=== PATIENT | female | born 1940 | race Caucasian/White ===

== ENCOUNTER 2016-12-08 12:35 | Inpatient (IN) | payer OTHER ==
[~2016-12-08] VITALS: Ht 165.1 cm; Wt 114.0 kg
[~2016-12-08 12:35] MED LIST: ACETAMINOPHEN325 M3 PO; ATENOLOL25 MG PO; BUSPIRONE HCL10 MG PO; CEFAZOLIN SODIUM1 GM IV; COUMADIN2.5 MG PO; COUMADIN3 MG PO; DUONEB 2.5-0.5 M3 ML AEROSOL; HYDROCHLOROTHIA25 MG PO; LEXAPRO20 MG PO; LIPITOR40 MG PO; LISINOPRIL20 MG PO; LO-DOSE ASPIRIN81 M2 PO; NITROSTAT0.4 MG SL; OXYBUTYNIN CHLOR5 M1 PO; PREVACID30 MG PO; SENNA PLUS TAB1 EACH PO; THIAMINE HCL100 MG PO; TRAZODONE HCL50 MG PO; TRILEPTAL600 MG PO; VIGAMOX 0.60 DROP/3 BOTH EYES
[2016-12-08 13:16] LABS: HEMATOCRIT 36.4 % (36.0-46.0); MCH 26.9 PG (29.0-34.0); MCHC 31.9 G/DL (30.0-36.0); MCV 84.5 FL (83-99); MEAN PLAT.VOLUME 10.4 uM^3 (9.5-12.4); PLATELET COUNT 254 K/uL (156-360); RBC DIS.WIDTH-CV 16.5 % (11.8-14.6); RBC DIS.WIDTH-SD 50.5 % (39-53); RED BLOOD COUNT 4.31 M/uL (3.80-5.20)
[2016-12-08 13:17] LABS: WHITE BLOOD COUNT 6.4 K/uL (4.1-10.2)
[2016-12-08 13:25] LABS: CHLORIDE 98 mEq/L (99-109); POTASSIUM 5.4 mEq/L (3.7-5.4); SODIUM 134 mEq/L (136-147)
[2016-12-08 13:27] LABS: GLUCOSE 124 mg/dL (70-99)
[2016-12-08 13:28] LABS: ANION GAP 14 MEQ/L (2-14)
[2016-12-08 13:31] LABS: GFR ESTIMATE (CALCULATED) 36 mL/min/
[2016-12-08 13:32] LABS: UREA NITROGEN (BUN) 26 mg/dL (9-23)
[2016-12-08 14:04] LABS: ADD MIUA? NO; BILIRUBIN NEGATIVE; BLOOD NEGATIVE; COLOR YELLOW ((YELLOW)); GLUCOSE (STRIP) NEGATIVE; KETONES NEGATIVE; LEUKOCYTES NEGATIVE; NITRITE NEGATIVE; PH, URINE 5.5 (5-8); PROTEIN (STRIP) NEGATIVE; SPECIFIC GRAVITY 1.018 (1.000-1.030); UCUL ADDED? NO; UROBILINOGEN 0.2 MG/DL (0.2-1.0)
[2016-12-08 14:05] LABS: TROP-I INTERPRETATION NEGATIVE; TROPONIN-I < 0.01 ng/mL (0.0-0.30)
[2016-12-08] MEDS ORDERED: LEXAPRO10 MG PO (15:36)
[2016-12-08] MEDS ORDERED: AUGMENTIN875 MG PO (15:39)
[2016-12-08] MEDS ORDERED: TYLENOL REGULA325 MG PO (15:40)
[2016-12-08] MEDS ORDERED: DUONEB 2.5-0.5 M3 ML AEROSOL (15:41)
[2016-12-08 16:55] LABS: INTER. NORMALIZED RATIO 1.7; PROTHROMBIN TIME 17.9 (9.2-11.2)
[2016-12-08 21:00] VITALS: BP 90/62
[2016-12-08 21:41] LABS: INFLUENZA A VIRAL ANTIGEN NEGATIVE; INFLUENZA B VIRAL ANTIGEN NEGATIVE
[2016-12-09] VITALS (7 sets, daily range): BP systolic 99–165; BP diastolic 60–87
[2016-12-09 06:52] LABS: EOSINOPHIL (%) 1.2 % (0-5); EOSINOPHIL COUNT 0.1 K/uL (0-0.3); HEMATOCRIT 34.5 % (36.0-46.0); IMMATURE GRANULOCYTE (%) 0.8 % (0.0-0.7); IMMATURE GRANULOCYTE COUNT 0.7 K/uL; LYMPHOCYTE COUNT 0.7 K/uL (1.0-2.8); MCH 26.8 PG (29.0-34.0); MCHC 31.3 G/DL (30.0-36.0); MCV 85.6 FL (83-99); MONOCYTE (%) 4.8 % (3-12); MONOCYTE COUNT 0.4 K/uL (0-0.8); NEUTROPHIL (%) 84.2 % (45-76); NEUTROPHIL COUNT 7.2 K/uL (1.8-6.4); RBC DIS.WIDTH-CV 16.5 % (11.8-14.6); RBC DIS.WIDTH-SD 51.2 % (39-53); RED BLOOD COUNT 4.03 M/uL (3.80-5.20)
[2016-12-09 06:55] LABS: WHITE BLOOD COUNT 8.6 K/uL (4.1-10.2)
[2016-12-09 07:12] LABS: METH RESISTANT S AUREUS PCR NEGATIVE (NEGATIVE)
[2016-12-09 07:15] LABS: PROBE CHECK PASS; SPECIMEN PROCESSING CONTROL PASS
[2016-12-09 07:29] LABS: INTERNAL CONTROL VALID? YES
[2016-12-09 07:45] LABS: ANION GAP 10 MEQ/L (2-14); CHLORIDE 102 MEQ/L (99-109); GFR ESTIMATE (CALCULATED) 51 mL/min/; GLUCOSE 117 mg/dL (70-99); POTASSIUM 5.9 MEQ/L (3.7-5.4); SAMPLE HEMOLYSIS CHECK 1; SAMPLE ICTERIC CHECK 0; SAMPLE LIPEMIA CHECK 0; SODIUM 135 MEQ/L (136-147); UREA NITROGEN (BUN) 21 mg/dL (9-23)
[2016-12-09 07:56] LABS: INTER. NORMALIZED RATIO 1.9; PROTHROMBIN TIME 19.3 (9.2-11.2)
[2016-12-09 08:52] LABS: ABS NEUTROPHIL COUNT 6.95; ANISOCYTOSIS 1+; MICROCYTOSIS 1+; PLAT.SUFFICIENCY ADEQUATE; PLATELET CLUMPS PRESENT; USER ID STC
[2016-12-10 04:05] VITALS: BP 136/92
[2016-12-10 06:53] LABS: INTER. NORMALIZED RATIO 2.4
[2016-12-10 08:06] VITALS: BP 142/88
[2016-12-10 08:53] LABS: HEMATOCRIT 34.3 % (36.0-46.0); MCH 27.2 PG (29.0-34.0); MCHC 30.3 G/DL (30.0-36.0); MCV 89.6 FL (83-99); MEAN PLAT.VOLUME 10.2 uM^3 (9.5-12.4); PLATELET COUNT 210 K/uL (156-360); RBC DIS.WIDTH-CV 17.2 % (11.8-14.6); RED BLOOD COUNT 3.83 M/uL (3.80-5.20); WHITE BLOOD COUNT 8.5 K/uL (4.1-10.2)
[2016-12-10 09:30] LABS: ANION GAP 11 MEQ/L (2-14); CHLORIDE 107 MEQ/L (99-109); GFR ESTIMATE (CALCULATED) 51 mL/min/; GLUCOSE 142 mg/dL (70-99); POTASSIUM 5.3 MEQ/L (3.7-5.4); SAMPLE HEMOLYSIS CHECK 0; SAMPLE ICTERIC CHECK 0; SAMPLE LIPEMIA CHECK 0; SODIUM 137 MEQ/L (136-147); UREA NITROGEN (BUN) 26 mg/dL (9-23)
[2016-12-10 11:56] VITALS: BP 141/74
[2016-12-10 16:00] VITALS: BP 155/78
[2016-12-10 18:58] VITALS: BP 154/85
[2016-12-10 22:49] VITALS: BP 142/80
[2016-12-11 03:11] VITALS: BP 150/70
[2016-12-11 07:26] LABS: INTER. NORMALIZED RATIO 2.8
[2016-12-11 07:46] VITALS: BP 152/97
[2016-12-11 08:42] LABS: ANION GAP 8 MEQ/L (2-14); CHLORIDE 104 MEQ/L (99-109); GFR ESTIMATE (CALCULATED) 57 mL/min/; GLUCOSE 107 mg/dL (70-99); POTASSIUM 4.5 MEQ/L (3.7-5.4); SAMPLE HEMOLYSIS CHECK 0; SAMPLE ICTERIC CHECK 0; SAMPLE LIPEMIA CHECK 0; SODIUM 138 MEQ/L (136-147); UREA NITROGEN (BUN) 28 mg/dL (9-23)
[2016-12-11 11:59] VITALS: BP 158/88
[2016-12-11 15:49] VITALS: BP 152/90
[2016-12-11 19:07] VITALS: BP 145/85
[2016-12-11 22:31] VITALS: BP 126/71
[2016-12-12 06:39] LABS: INTER. NORMALIZED RATIO 3.9
[2016-12-12 09:24] VITALS: BP 137/91
[2016-12-12 12:10] LABS: HEMATOCRIT 32.2 % (36.0-46.0); MCHC 30.7 G/DL (30.0-36.0); MCV 87.7 FL (83-99); MEAN PLAT.VOLUME 9.8 uM^3 (9.5-12.4); PLATELET COUNT 193 K/uL (156-360); RBC DIS.WIDTH-CV 16.7 % (11.8-14.6); RBC DIS.WIDTH-SD 52.9 % (39-53); RED BLOOD COUNT 3.67 M/uL (3.80-5.20)
[2016-12-12 12:11] LABS: WHITE BLOOD COUNT 11.3 K/uL (4.1-10.2)
[2016-12-12 12:45] VITALS: BP 136/55
[2016-12-12 12:58] LABS: ANION GAP 8 MEQ/L (2-14); CHLORIDE 105 MEQ/L (99-109); GFR ESTIMATE (CALCULATED) > 59 mL/min/; GLUCOSE 108 mg/dL (70-99); POTASSIUM 4.6 MEQ/L (3.7-5.4); SAMPLE HEMOLYSIS CHECK 0; SAMPLE ICTERIC CHECK 0; SAMPLE LIPEMIA CHECK 0; SODIUM 141 MEQ/L (136-147); UREA NITROGEN (BUN) 23 mg/dL (9-23)
[2016-12-12 15:43] VITALS: BP 121/62
[2016-12-12 19:37] VITALS: BP 129/58
[2016-12-12 23:09] VITALS: BP 112/77
[2016-12-13 03:46] VITALS: BP 138/89
[2016-12-13 07:34] LABS: INTER. NORMALIZED RATIO 3.5; PROTHROMBIN TIME 36.6 (9.2-11.2)
[2016-12-13 08:22] VITALS: BP 139/84
[2016-12-13] MEDS ORDERED: CARVEDILOL6.25 MG PO (11:38)
[2016-12-13] MEDS ORDERED: SEROQUEL12.5 MG PO (11:38)
[2016-12-13] MEDS ORDERED: COUMADIN3 MG PO (11:38)
[2016-12-13] MEDS ORDERED: HYDROCHLOROTHIA25 MG PO (11:38)
[2016-12-13] MEDS ORDERED: LEVAQUIN750 MG PO (11:49)
[2016-12-13 11:59] VITALS: BP 124/77
[2016-12-13] MEDS ORDERED: ACETYLCYSTEINE IH (15:12)
[2016-12-13] MEDS ORDERED: MEDROL DOSEPAK4 MG PO (15:12)
[2016-12-13] MEDS ORDERED: DUONEB 2.5-0.5 M3 ML PEP (15:12)
[2016-12-13 16:34] VITALS: BP 126/93
== END 2016-12-13 18:07 | DRG 190 ==
LOC: EME 12:35 → EDOF 15:50 → 4EAST 15:50 → EDOF 16:51 → 4EAST 21:34
PROVIDERS: Emergency Medicine; Internal Medicine
DX: J44.0 Chronic obstructive pulmonary disease with (acute) lower respiratory infection (principal); J96.21 Acute and chronic respiratory failure with hypoxia; N17.9 Acute kidney failure, unspecified; J18.9 Pneumonia, unspecified organism; I95.9 Hypotension, unspecified; F01.51 Vascular dementia, unspecified severity, with behavioral disturbance; Z99.81 Dependence on supplemental oxygen; E87.5 Hyperkalemia; I48.0 Paroxysmal atrial fibrillation; Z68.41 Body mass index [BMI] 40.0-44.9, adult; J45.901 Unspecified asthma with (acute) exacerbation; J44.1 Chronic obstructive pulmonary disease with (acute) exacerbation; J20.9 Acute bronchitis, unspecified; E66.9 Obesity, unspecified; Z91.19 Patient's noncompliance with other medical treatment and regimen; Y95 Nosocomial condition; G47.33 Obstructive sleep apnea (adult) (pediatric); G40.909 Epilepsy, unspecified, not intractable, without status epilepticus; F41.9 Anxiety disorder, unspecified; F31.9 Bipolar disorder, unspecified; Z66 Do not resuscitate; Z79.84 Long term (current) use of oral hypoglycemic drugs; Z79.01 Long term (current) use of anticoagulants; Z86.73 Personal history of transient ischemic attack (TIA), and cerebral infarction without residual deficits; D63.8 Anemia in other chronic diseases classified elsewhere; E78.5 Hyperlipidemia, unspecified
CPT/HCPCS: 31720; 70450; 71010; 71020; 80048; 81003; 83605; 84484; 85014; 85018; 85025; 85027; 85610; 87040; 87070; 87205; 87449; 87502; 87641; 93005; 94640; 94640 76; 94799; 99202; 99281; 99285; J0456; J0692; J2920; J2930; J3370; J7030; J7050; J7512

== ENCOUNTER 2017-03-07 13:27 | Observation (INO) | payer OTHER ==
[~2017-03-07] VITALS: Ht 165.1 cm; Wt 116.3 kg
[~2017-03-07 13:27] MED LIST changes: +ACETYLCYSTEINE IH; +AUGMENTIN875 MG PO; +CARVEDILOL6.25 MG PO; +DUONEB 2.5-0.5 M3 ML PEP; +LEVAQUIN750 MG PO; +LEXAPRO10 MG PO; +MEDROL DOSEPAK4 MG PO; +SEROQUEL12.5 MG PO; +TYLENOL REGULA325 MG PO
[2017-03-07 14:14] LABS: HEMATOCRIT 35.2 % (36.0-46.0); MCH 25.7 PG (29.0-34.0); MCHC 29.8 G/DL (30.0-36.0); MCV 86.3 FL (83-99); MEAN PLAT.VOLUME 9.4 uM^3 (9.5-12.4); PLATELET COUNT 297 K/uL (156-360); RBC DIS.WIDTH-CV 15.8 % (11.8-14.6); RBC DIS.WIDTH-SD 49.7 % (39-53); RED BLOOD COUNT 4.08 M/uL (3.80-5.20); WHITE BLOOD COUNT 8.6 K/uL (4.1-10.2)
[2017-03-07 14:33] LABS: CHLORIDE 99 mEq/L (99-109); POTASSIUM 4.6 mEq/L (3.7-5.4); SODIUM 140 mEq/L (136-147)
[2017-03-07 14:35] LABS: GLUCOSE 96 mg/dL (70-99)
[2017-03-07 14:37] LABS: ANION GAP 10 MEQ/L (2-14)
[2017-03-07 14:39] LABS: GFR ESTIMATE (CALCULATED) 51 mL/min/
[2017-03-07 14:40] LABS: TROP-I INTERPRETATION NEGATIVE; TROPONIN-I < 0.01 ng/mL (0.0-0.30)
[2017-03-07 14:44] LABS: UREA NITROGEN (BUN) 22 mg/dL (9-23)
[2017-03-07] MEDS ORDERED: COUMADIN1 MG PO (14:49)
[2017-03-07] MEDS ORDERED: COUMADIN3 MG PO ×2 (14:50→14:53)
[2017-03-07] MEDS ORDERED: LASIX20 MG PO (14:53)
[2017-03-07] MEDS ORDERED: PROVIGIL200 MG PO (14:55)
[2017-03-07 14:56] LABS: INTER. NORMALIZED RATIO 2.4; PROTHROMBIN TIME 24.9 (9.2-11.2); PTT 32.7 (25-32)
[2017-03-07] MEDS ORDERED: TRILEPTAL300 MG PO (14:57)
[2017-03-07] MEDS ORDERED: DULCOLAX10 MG PR (15:02)
[2017-03-07] MEDS ORDERED: MILK OF MAGN PO (15:04)
[2017-03-07] MEDS ORDERED: DUONEB 2.5-0.5 M3 ML AEROSOL (15:04)
[2017-03-07] MEDS ORDERED: MIRALAX255 GM PO (15:05)
[2017-03-07] MEDS ORDERED: TRAZODONE HCL50 MG PO (15:06)
[2017-03-07 17:51] VITALS: BP 119/83
[2017-03-07 19:35] LABS: TROP-I INTERPRETATION NEGATIVE; TROPONIN-I 0.01 ng/mL (0.0-0.30)
[2017-03-07 20:15] VITALS: BP 123/74
[2017-03-07 22:40] LABS: METH RESISTANT S AUREUS PCR NEGATIVE (NEGATIVE)
[2017-03-07 22:50] LABS: PROBE CHECK PASS; SPECIMEN PROCESSING CONTROL PASS
[2017-03-07 23:19] VITALS: BP 118/56
[2017-03-08 01:39] LABS: TROP-I INTERPRETATION NEGATIVE; TROPONIN-I 0.01 ng/mL (0.0-0.30)
[2017-03-08 04:31] VITALS: BP 139/86
[2017-03-08 07:28] VITALS: BP 142/72
[2017-03-08 08:48] LABS: INTER. NORMALIZED RATIO 2.3; PROTHROMBIN TIME 24.1 (9.2-11.2)
[2017-03-08] MEDS ORDERED: PREDNISONE10 MG PO (11:48)
[2017-03-08 12:54] VITALS: BP 129/95
== END 2017-03-08 13:35 ==
LOC: EME → EDBD 13:27 → EDOF 16:46 → 5WEST 16:46 → EDOF 16:46 → 5WEST 17:36
PROVIDERS: Emergency Medicine; Hospitalist
DX: J44.1 Chronic obstructive pulmonary disease with (acute) exacerbation (principal); I48.91 Unspecified atrial fibrillation; R07.9 Chest pain, unspecified; E66.9 Obesity, unspecified; Z68.41 Body mass index [BMI] 40.0-44.9, adult; Z99.81 Dependence on supplemental oxygen; F32.9 Major depressive disorder, single episode, unspecified; F41.1 Generalized anxiety disorder; J96.10 Chronic respiratory failure, unspecified whether with hypoxia or hypercapnia; Z86.73 Personal history of transient ischemic attack (TIA), and cerebral infarction without residual deficits; F01.50 Vascular dementia, unspecified severity, without behavioral disturbance, psychotic disturbance, mood disturbance, and anxiety
CPT/HCPCS: 71020; 80048; 83880; 84484; 85027; 85610; 85730; 87641; 93005; 94640; 94640 76; 94799; 99281; 99285; G0378; J1940; J7512

== ENCOUNTER 2017-04-07 23:22 | Observation (INO) | payer OTHER ==
[~2017-04-07] VITALS: Ht 170.2 cm; Wt 113.9 kg
[~2017-04-07 23:22] MED LIST changes: +COUMADIN1 MG PO; +DULCOLAX10 MG PR; +LASIX20 MG PO; +MILK OF MAGN PO; +MIRALAX255 GM PO; +PREDNISONE10 MG PO; +PROVIGIL200 MG PO; +TRILEPTAL300 MG PO
[2017-04-08 00:23] LABS: MCH 25.6 PG (29.0-34.0); MCHC 31.2 G/DL (30.0-36.0); MEAN PLAT.VOLUME 9.7 uM^3 (9.5-12.4); PLATELET COUNT 263 K/uL (156-360); RBC DIS.WIDTH-CV 15.2 % (11.8-14.6); RBC DIS.WIDTH-SD 45.1 % (39-53); RED BLOOD COUNT 4.14 M/uL (3.80-5.20)
[2017-04-08 00:27] LABS: MCV 82.1 FL (83-99); WHITE BLOOD COUNT 10.4 K/uL (4.1-10.2)
[2017-04-08 00:38] LABS: CHLORIDE 96 mEq/L (99-109); D-DIMER ELISA < 0.15 mg/L FEU (< 0.57); POTASSIUM 4.2 mEq/L (3.7-5.4); PROTHROMBIN TIME 20.9 (9.2-11.2); PTT 34.3 (25-32); SODIUM 136 mEq/L (136-147)
[2017-04-08 00:39] LABS: GLUCOSE 115 mg/dL (70-99)
[2017-04-08 00:41] LABS: ANION GAP 11 MEQ/L (2-14)
[2017-04-08 00:43] LABS: GFR ESTIMATE (CALCULATED) > 59 mL/min/
[2017-04-08 00:44] LABS: UREA NITROGEN (BUN) 16 mg/dL (9-23)
[2017-04-08 00:47] LABS: TROP-I INTERPRETATION NEGATIVE; TROPONIN-I < 0.01 ng/mL (0.0-0.30)
[2017-04-08] MEDS ORDERED: TRILEPTAL150 MG PO (01:35)
[2017-04-08] MEDS ORDERED: TRILEPTAL300 MG PO (01:37)
[2017-04-08 07:04] LABS: TROP-I INTERPRETATION NEGATIVE; TROPONIN-I < 0.01 ng/mL (0.0-0.30)
[2017-04-08 07:30] VITALS: BP 137/91
[2017-04-08 11:04] VITALS: BP 145/90
[2017-04-08 13:28] LABS: HDL CHOLESTEROL 40 MG/DL (Desirable>=50); LDL CHOLESTEROL 126 mg/dL (Desirable<100); NON-HDL CHOLESTEROL 146 mg/dL (Desirable<160); TOTAL CHOLESTEROL 186 mg/dL (Desirable<200); TRIGLYCERIDES 99 MG/DL (Normal: <150)
[2017-04-08 13:30] LABS: TROP-I INTERPRETATION NEGATIVE; TROPONIN-I < 0.01 ng/mL (0.0-0.30)
== END 2017-04-08 16:20 ==
LOC: EME 23:22 → EDOF 04-08 01:58 → 4EAST 04-08 01:58
PROVIDERS: Physician Assistant Medical
DX: R07.89 Other chest pain (principal); D72.829 Elevated white blood cell count, unspecified; J96.10 Chronic respiratory failure, unspecified whether with hypoxia or hypercapnia; J44.9 Chronic obstructive pulmonary disease, unspecified; I48.0 Paroxysmal atrial fibrillation; G47.33 Obstructive sleep apnea (adult) (pediatric); F41.9 Anxiety disorder, unspecified; F32.9 Major depressive disorder, single episode, unspecified; M79.601 Pain in right arm; I11.0 Hypertensive heart disease with heart failure; I50.9 Heart failure, unspecified; D64.9 Anemia, unspecified; J45.909 Unspecified asthma, uncomplicated; Z99.81 Dependence on supplemental oxygen; K21.9 Gastro-esophageal reflux disease without esophagitis; Z79.01 Long term (current) use of anticoagulants; E66.9 Obesity, unspecified; Z68.39 Body mass index [BMI] 39.0-39.9, adult; F01.51 Vascular dementia, unspecified severity, with behavioral disturbance; I69.354 Hemiplegia and hemiparesis following cerebral infarction affecting left non-dominant side
CPT/HCPCS: 71010; 80048; 80061; 83880; 84484; 85027; 85379; 85610; 85730; 93005; 94640; 94640 76; 94760; 94799; 99202; 99281; 99285; G0378; J2930

== ENCOUNTER 2017-10-03 17:50 | Inpatient (IN) | payer OTHER ==
[~2017-10-03] VITALS: Ht 167.6 cm; Wt 112.2 kg
[~2017-10-03 17:50] MED LIST changes: +AMOX TR-K CLV1 EAC4 PO; +ATIVAN0.5 MG PO; +COUMADIN2 MG PO; +DEPAKOTE250 MG PO; +DEPAKOTE500 MG PO; -LASIX20 MG PO; +LASIX40 MG PO; +MIRALAX119 GM PO; -MIRALAX255 GM PO; +NIZORAL SHAMPO120 ML TP; +PRILOSEC20 MG PO; +PROVIGIL100 MG PO; -PROVIGIL200 MG PO; +RISPERIDONE0.5 MG PO; +TRILEPTAL150 MG PO; +ZOLOFT25 MG PO
[2017-10-03 18:35] LABS: BASOPHIL COUNT 0.1 K/uL (0-0.1); EOSINOPHIL (%) 0.9 % (0-5); EOSINOPHIL COUNT 0.1 K/uL (0-0.3); HEMATOCRIT 37.6 % (36.0-46.0); IMMATURE GRANULOCYTE COUNT 0.1 K/uL; INSTRUMENT ABS NEUTROPHIL CT 8.4 K/uL; LYMPHOCYTE COUNT 1.5 K/uL (1.0-2.8); MCH 23.7 PG (29.0-34.0); MCHC 28.7 G/DL (30.0-36.0); MCV 82.5 FL (83-99); MEAN PLAT.VOLUME 10.5 uM^3 (9.5-12.4); MONOCYTE (%) 9.8 % (3-12); MONOCYTE COUNT 1.1 K/uL (0-0.8); NEUTROPHIL (%) 74.8 % (45-76); NEUTROPHIL COUNT 8.4 K/uL (1.8-6.4); PLATELET COUNT 296 K/uL (156-360); RBC DIS.WIDTH-CV 18.9 % (11.8-14.6); RBC DIS.WIDTH-SD 56.1 % (39-53); RED BLOOD COUNT 4.56 M/uL (3.80-5.20); WHITE BLOOD COUNT 11.3 K/uL (4.1-10.2)
[2017-10-03 18:42] LABS: PROTHROMBIN TIME 33.7 SEC (10.2-12.9)
[2017-10-03 18:44] LABS: CHLORIDE 101 mEq/L (99-109); POTASSIUM 3.6 mEq/L (3.7-5.4); PTT 33.3 SEC (25-37); SODIUM 148 mEq/L (136-147)
[2017-10-03 18:46] LABS: GLUCOSE 146 mg/dL (70-99)
[2017-10-03 18:47] LABS: ANION GAP 13 MEQ/L (2-14)
[2017-10-03 18:50] LABS: GFR ESTIMATE (CALCULATED) 46 mL/min/
[2017-10-03 18:51] LABS: UREA NITROGEN (BUN) 42 mg/dL (9-23)
[2017-10-03 18:53] LABS: LIPASE 39 U/L (1.0-51.0)
[2017-10-03 19:02] LABS: Estimated Average Glucose 123 mg/dL (70-123); HEMOGLOBIN A1c (GLYCOHEMOGLOB) 5.9 % HGB (Below 5.7)
[2017-10-03 19:24] LABS: HDL CHOLESTEROL 29 MG/DL (Desirable>=50); LDL CHOLESTEROL 108 mg/dL (Desirable<100); NON-HDL CHOLESTEROL 154 mg/dL (Desirable<160); TOTAL CHOLESTEROL 183 mg/dL (Desirable<200); TRIGLYCERIDES 228 MG/DL (Normal: <150)
[2017-10-03 19:34] LABS: TROP-I INTERPRETATION NEGATIVE; TROPONIN-I < 0.01 ng/mL (0.0-0.30)
[2017-10-03] MEDS ORDERED: PREDNISONE10 MG PO (22:05)
[2017-10-03] MEDS ORDERED: PROVIGIL100 MG PO (22:07)
[2017-10-03] MEDS ORDERED: ZOLOFT50 MG PO (22:13)
[2017-10-03] MEDS ORDERED: MILK OF MAGN PO (22:26)
[2017-10-03 23:21] LABS: ADD MIUA? NO; BILIRUBIN NEGATIVE; BLOOD NEGATIVE; COLOR YELLOW ((YELLOW)); GLUCOSE (STRIP) NEGATIVE; KETONES NEGATIVE; LEUKOCYTES NEGATIVE; NITRITE NEGATIVE; PROTEIN (STRIP) NEGATIVE; SPECIFIC GRAVITY 1.038 (1.000-1.030); UCUL ADDED? NO; UROBILINOGEN 0.2 MG/DL (0.2-1.0)
[2017-10-04 02:21] LABS: BASE EXCESS 6.3 mEq/L (-3 to +3); BICARBONATE 34.2 mEq/L (22-26); CARBOXY HGB 1.9 % (0-5); PCO2 68 mm Hg (35-45); pH 7.31 (7.35-7.45)
[2017-10-04 02:22] LABS: COMMENTS - BLOOD GASES C; DEVICE NC; O2 FLOW 4 L/MIN; PO2 111 mm Hg (80-100); SITE LB; TOTAL RESP RATE 20 resp/min
[2017-10-04 02:39] LABS: TROP-I INTERPRETATION NEGATIVE; TROPONIN-I < 0.01 ng/mL (0.0-0.30)
[2017-10-04 06:07] LABS: POINT-OF-CARE METER ID UU13113717
[2017-10-04 07:04] VITALS: BP 141/71
[2017-10-04 10:46] LABS: HEMATOCRIT 34.3 % (36.0-46.0); MCHC 28.9 G/DL (30.0-36.0); MCV 83.1 FL (83-99); MEAN PLAT.VOLUME 10.3 uM^3 (9.5-12.4); PLATELET COUNT 223 K/uL (156-360); RBC DIS.WIDTH-CV 18.6 % (11.8-14.6); RBC DIS.WIDTH-SD 56.1 % (39-53); RED BLOOD COUNT 4.13 M/uL (3.80-5.20); WHITE BLOOD COUNT 8.7 K/uL (4.1-10.2)
[2017-10-04 10:56] LABS: ANION GAP 9 MEQ/L (2-14); CHLORIDE 111 MEQ/L (99-109); POTASSIUM 4.1 MEQ/L (3.7-5.4); SAMPLE HEMOLYSIS CHECK 0; SAMPLE ICTERIC CHECK 0; SAMPLE LIPEMIA CHECK 0; SODIUM 149 MEQ/L (136-147); TOTAL BILIRUBIN 0.4 MG/DL (0.0-1.0)
[2017-10-04 11:02] LABS: ALKALINE PHOSPHATASE 69 IU/L (3-129); GFR ESTIMATE (CALCULATED) > 59 mL/min/; UREA NITROGEN (BUN) 33 mg/dL (9-23)
[2017-10-04 11:04] LABS: GLUCOSE 83 mg/dL (70-99)
[2017-10-04 11:06] LABS: TROP-I INTERPRETATION NEGATIVE; TROPONIN-I 0.01 ng/mL (0.0-0.30)
[2017-10-04 11:10] VITALS: BP 154/67
[2017-10-04 11:14] LABS: INTER. NORMALIZED RATIO 2.4; PROTHROMBIN TIME 27.6 SEC (10.2-12.9)
[2017-10-04 15:12] VITALS: BP 149/70
[2017-10-04 19:36] VITALS: BP 171/82
[2017-10-05 07:08] LABS: EOSINOPHIL (%) 0.5 % (0-5); HEMATOCRIT 32.7 % (36.0-46.0); IMMATURE GRANULOCYTE (%) 0.6 % (0.0-0.7); IMMATURE GRANULOCYTE COUNT 0.1 K/uL; INSTRUMENT ABS NEUTROPHIL CT 6.7 K/uL; LYMPHOCYTE COUNT 0.9 K/uL (1.0-2.8); MCH 24.8 PG (29.0-34.0); MCV 82.8 FL (83-99); MEAN PLAT.VOLUME 10.7 uM^3 (9.5-12.4); MONOCYTE (%) 6.3 % (3-12); MONOCYTE COUNT 0.5 K/uL (0-0.8); NEUTROPHIL (%) 81.5 % (45-76); NEUTROPHIL COUNT 6.7 K/uL (1.8-6.4); PLATELET COUNT 221 K/uL (156-360); RBC DIS.WIDTH-CV 18.5 % (11.8-14.6); RBC DIS.WIDTH-SD 55.2 % (39-53); RED BLOOD COUNT 3.95 M/uL (3.80-5.20); WHITE BLOOD COUNT 8.3 K/uL (4.1-10.2)
[2017-10-05 07:33] LABS: ANION GAP 8 MEQ/L (2-14); CHLORIDE 108 MEQ/L (99-109); GFR ESTIMATE (CALCULATED) > 59 mL/min/; POTASSIUM 3.9 MEQ/L (3.7-5.4); SAMPLE HEMOLYSIS CHECK 0; SAMPLE ICTERIC CHECK 0; SAMPLE LIPEMIA CHECK 0; SODIUM 147 MEQ/L (136-147); UREA NITROGEN (BUN) 24 mg/dL (9-23)
[2017-10-05 07:35] LABS: GLUCOSE 133 mg/dL (70-99)
[2017-10-05 07:46] VITALS: BP 121/71
[2017-10-05 15:37] VITALS: BP 120/67
[2017-10-05 16:50] LABS: INTER. NORMALIZED RATIO 2.8; PROTHROMBIN TIME 31.6 SEC (10.2-12.9)
[2017-10-05 23:46] VITALS: BP 143/68
[2017-10-06 06:54] LABS: INTER. NORMALIZED RATIO 2.5; PROTHROMBIN TIME 28.6 SEC (10.2-12.9)
[2017-10-06 07:00] LABS: HEMATOCRIT 33.9 % (36.0-46.0); MCHC 29.5 G/DL (30.0-36.0); MCV 81.5 FL (83-99); MEAN PLAT.VOLUME 10.8 uM^3 (9.5-12.4); NRBC (%) 0.2 /100 WBC (0-0); PLATELET COUNT 189 K/uL (156-360); RBC DIS.WIDTH-CV 18.4 % (11.8-14.6); RED BLOOD COUNT 4.16 M/uL (3.80-5.20); WHITE BLOOD COUNT 8.5 K/uL (4.1-10.2)
[2017-10-06 07:40] VITALS: BP 129/79
[2017-10-06] MEDS ORDERED: PRAVASTATIN SOD40 MG PO (11:43)
== END 2017-10-06 14:57 | DRG 71 ==
LOC: EME 17:50 → 5SOUTH 10-04 01:09 → EDOF 10-04 01:09 → ENRESERV 10-04 01:11 → 5SOUTH 10-04 03:36
PROVIDERS: Emergency Medicine; Hospitalist; Internal Medicine; Physician Assistant
DX: G93.41 Metabolic encephalopathy (principal); I95.9 Hypotension, unspecified; E87.0 Hyperosmolality and hypernatremia; E86.0 Dehydration; E66.01 Morbid (severe) obesity due to excess calories; Z68.39 Body mass index [BMI] 39.0-39.9, adult; F01.51 Vascular dementia, unspecified severity, with behavioral disturbance; R29.713 NIHSS score 13; I69.354 Hemiplegia and hemiparesis following cerebral infarction affecting left non-dominant side; I11.0 Hypertensive heart disease with heart failure; I50.42 Chronic combined systolic (congestive) and diastolic (congestive) heart failure; G47.33 Obstructive sleep apnea (adult) (pediatric); E87.6 Hypokalemia; D72.829 Elevated white blood cell count, unspecified; R09.02 Hypoxemia; R60.0 Localized edema; E78.5 Hyperlipidemia, unspecified; J44.9 Chronic obstructive pulmonary disease, unspecified; G40.909 Epilepsy, unspecified, not intractable, without status epilepticus; K21.9 Gastro-esophageal reflux disease without esophagitis; I48.0 Paroxysmal atrial fibrillation; Z66 Do not resuscitate; F31.9 Bipolar disorder, unspecified; F41.1 Generalized anxiety disorder; Z87.440 Personal history of urinary (tract) infections; Z90.710 Acquired absence of both cervix and uterus; Z79.01 Long term (current) use of anticoagulants; Z91.19 Patient's noncompliance with other medical treatment and regimen; Z71.3 Dietary counseling and surveillance
CPT/HCPCS: 36600; 70450; 70551; 71010; 74177; 80048; 80053; 80061; 81003; 82140; 82803; 82948; 83036; 83605; 83690; 84484; 85025; 85027; 85610; 85730; 86140; 87040; 87086; 87801; 92526 GN; 92610 GN; 93005; 93306; 93880; 94640; 94640 76; 94760; 94799; 99202; 99281; 99284; J2060; J2543; J3370; J7050; J7070; J7512

== ENCOUNTER 2017-10-18 12:07 | Inpatient (IN) | payer OTHER ==
[~2017-10-18] VITALS: Ht 162.6 cm; Wt 105.8 kg
[~2017-10-18 12:07] MED LIST changes: +PRAVASTATIN SOD40 MG PO; +ZOLOFT50 MG PO
[2017-10-18 13:16] LABS: EOSINOPHIL COUNT 0.2 K/uL (0-0.3); HEMATOCRIT 37.3 % (36.0-46.0); IMMATURE GRANULOCYTE (%) 1.4 % (0.0-0.7); IMMATURE GRANULOCYTE COUNT 0.1 K/uL; INSTRUMENT ABS NEUTROPHIL CT 4.2 K/uL; LYMPHOCYTE COUNT 1.1 K/uL (1.0-2.8); MCH 24.5 PG (29.0-34.0); MCV 84.8 FL (83-99); MEAN PLAT.VOLUME 10.3 uM^3 (9.5-12.4); MONOCYTE (%) 11.9 % (3-12); MONOCYTE COUNT 0.8 K/uL (0-0.8); NEUTROPHIL COUNT 4.2 K/uL (1.8-6.4); PLATELET COUNT 207 K/uL (156-360); RBC DIS.WIDTH-CV 19.3 % (11.8-14.6); RBC DIS.WIDTH-SD 59.9 % (39-53); WHITE BLOOD COUNT 6.4 K/uL (4.1-10.2)
[2017-10-18 13:24] LABS: CHLORIDE 101 mEq/L (99-109); POTASSIUM 3.7 mEq/L (3.7-5.4); SODIUM 149 mEq/L (136-147)
[2017-10-18 13:25] LABS: PTT 47.9 SEC (25-37)
[2017-10-18 13:27] LABS: GLUCOSE 101 mg/dL (70-99)
[2017-10-18 13:28] LABS: ANION GAP 10 MEQ/L (2-14); TOTAL BILIRUBIN 0.4 mg/dL (0.0-1.0)
[2017-10-18 13:29] LABS: PROTHROMBIN TIME 72.7 SEC (10.2-12.9)
[2017-10-18 13:30] LABS: ALKALINE PHOSPHATASE 69 IU/L (3-129); GFR ESTIMATE (CALCULATED) 39 mL/min/
[2017-10-18 13:31] LABS: UREA NITROGEN (BUN) 38 mg/dL (9-23)
[2017-10-18 13:37] LABS: TROP-I INTERPRETATION NEGATIVE; TROPONIN-I 0.01 ng/mL (0.0-0.30)
[2017-10-18 13:41] LABS: INTER. NORMALIZED RATIO 6.4
[2017-10-18 15:56] LABS: ADD MIUA? YES; BILIRUBIN NEGATIVE; BLOOD NEGATIVE; COLOR AMBER ((YELLOW)); GLUCOSE (STRIP) NEGATIVE; KETONES 5; LEUKOCYTES LARGE; NITRITE NEGATIVE; PROTEIN (STRIP) 30; SPECIFIC GRAVITY 1.023 (1.000-1.030)
[2017-10-18] MEDS ORDERED: PROVIGIL100 MG PO (16:45)
[2017-10-18 17:06] LABS: BACTERIA 1+ /HPF; EPITHELIAL CELLS RARE /HPF; MUCUS NONE SEEN /LPF; RED BLOOD CELLS NONE SEEN /HPF (0-5); UCUL ADDED? YES; WHITE BLOOD CELLS 20-30 /HPF (0-5)
[2017-10-18 20:00] VITALS: BP 125/78; BP 141/78
[2017-10-18 20:43] VITALS: BP 142/81
[2017-10-18 23:52] VITALS: BP 133/74
[2017-10-19 04:10] VITALS: BP 114/53
[2017-10-19 06:34] LABS: HEMATOCRIT 36.3 % (36.0-46.0); MCH 24.4 PG (29.0-34.0); MCHC 28.9 G/DL (30.0-36.0); MCV 84.4 FL (83-99); PLATELET COUNT 199 K/uL (156-360); RBC DIS.WIDTH-CV 19.1 % (11.8-14.6); RBC DIS.WIDTH-SD 58.9 % (39-53); WHITE BLOOD COUNT 6.5 K/uL (4.1-10.2)
[2017-10-19 06:57] LABS: INTER. NORMALIZED RATIO 1.5; PROTHROMBIN TIME 17.6 SEC (10.2-12.9)
[2017-10-19 07:13] LABS: ANION GAP 8 MEQ/L (2-14); CHLORIDE 107 MEQ/L (99-109); GFR ESTIMATE (CALCULATED) > 59 mL/min/; GLUCOSE 97 mg/dL (70-99); POTASSIUM 3.8 MEQ/L (3.7-5.4); SAMPLE HEMOLYSIS CHECK 0; SAMPLE ICTERIC CHECK 0; SAMPLE LIPEMIA CHECK 0; SODIUM 147 MEQ/L (136-147); UREA NITROGEN (BUN) 31 mg/dL (9-23)
[2017-10-19 07:42] VITALS: BP 108/59
[2017-10-19 12:30] VITALS: BP 99/57
[2017-10-19 15:19] VITALS: BP 110/61
[2017-10-19 19:19] VITALS: BP 114/81
[2017-10-20 00:10] VITALS: BP 110/76
[2017-10-20 06:19] LABS: BASOPHIL COUNT 0.1 K/uL (0-0.1); EOSINOPHIL (%) 3.8 % (0-5); EOSINOPHIL COUNT 0.2 K/uL (0-0.3); HEMATOCRIT 34.3 % (36.0-46.0); IMMATURE GRANULOCYTE (%) 2.1 % (0.0-0.7); IMMATURE GRANULOCYTE COUNT 0.1 K/uL; INSTRUMENT ABS NEUTROPHIL CT 3.6 K/uL; LYMPHOCYTE COUNT 1.1 K/uL (1.0-2.8); MCH 24.7 PG (29.0-34.0); MCHC 29.4 G/DL (30.0-36.0); MCV 83.9 FL (83-99); MEAN PLAT.VOLUME 10.3 uM^3 (9.5-12.4); MONOCYTE (%) 12.1 % (3-12); MONOCYTE COUNT 0.7 K/uL (0-0.8); NEUTROPHIL (%) 62.4 % (45-76); NEUTROPHIL COUNT 3.6 K/uL (1.8-6.4); PLATELET COUNT 188 K/uL (156-360); RBC DIS.WIDTH-CV 18.8 % (11.8-14.6); RBC DIS.WIDTH-SD 57.2 % (39-53); RED BLOOD COUNT 4.09 M/uL (3.80-5.20); WHITE BLOOD COUNT 5.8 K/uL (4.1-10.2)
[2017-10-20 06:34] LABS: INTER. NORMALIZED RATIO 1.2; PROTHROMBIN TIME 13.9 SEC (10.2-12.9)
[2017-10-20 06:43] LABS: ANION GAP 7 MEQ/L (2-14); CHLORIDE 104 MEQ/L (99-109); GFR ESTIMATE (CALCULATED) > 59 mL/min/; GLUCOSE 95 mg/dL (70-99); POTASSIUM 3.8 MEQ/L (3.7-5.4); SAMPLE HEMOLYSIS CHECK 0; SAMPLE ICTERIC CHECK 0; SAMPLE LIPEMIA CHECK 0; SODIUM 147 MEQ/L (136-147); UREA NITROGEN (BUN) 22 mg/dL (9-23)
[2017-10-20 07:51] VITALS: BP 110/80
[2017-10-20 11:03] LABS: BASE EXCESS 9.9 mEq/L (-3 to +3); BICARBONATE 36.7 mEq/L (22-26); CARBOXY HGB 2.2 % (0-5); METHEMOGLOBIN 1.2 % (0-1.5); pH 7.38 (7.35-7.45)
[2017-10-20 11:04] LABS: COMMENTS - BLOOD GASES A+C+; DEVICE NC; O2 FLOW 2 L/MIN; PCO2 62 mm Hg (35-45); PO2 69 mm Hg (80-100); SITE RR
[2017-10-20 11:50] VITALS: BP 114/78
[2017-10-20 23:36] VITALS: BP 138/88
[2017-10-21 07:01] LABS: INTER. NORMALIZED RATIO 1.2; PROTHROMBIN TIME 13.4 SEC (10.2-12.9)
[2017-10-21 07:15] LABS: ANION GAP 6 MEQ/L (2-14); CHLORIDE 105 MEQ/L (99-109); GFR ESTIMATE (CALCULATED) > 59 mL/min/; GLUCOSE 101 mg/dL (70-99); POTASSIUM 3.5 MEQ/L (3.7-5.4); SAMPLE HEMOLYSIS CHECK 0; SAMPLE ICTERIC CHECK 0; SAMPLE LIPEMIA CHECK 0; SODIUM 145 MEQ/L (136-147); UREA NITROGEN (BUN) 14 mg/dL (9-23)
[2017-10-21 07:29] VITALS: BP 136/91
[2017-10-21 16:08] VITALS: BP 178/72
[2017-10-21 23:50] VITALS: BP 115/58
[2017-10-22 06:38] LABS: INTER. NORMALIZED RATIO 1.2; PROTHROMBIN TIME 14.3 SEC (10.2-12.9)
[2017-10-22 06:49] VITALS: BP 113/65
[2017-10-22 07:52] LABS: ALKALINE PHOSPHATASE 58 IU/L (3-129); ANION GAP 6 MEQ/L (2-14); CHLORIDE 104 MEQ/L (99-109); GFR ESTIMATE (CALCULATED) > 59 mL/min/; GLUCOSE 89 mg/dL (70-99); POTASSIUM 3.8 MEQ/L (3.7-5.4); SAMPLE HEMOLYSIS CHECK 0; SAMPLE ICTERIC CHECK 0; SAMPLE LIPEMIA CHECK 0; SODIUM 145 MEQ/L (136-147); TOTAL BILIRUBIN 0.3 MG/DL (0.0-1.0); UREA NITROGEN (BUN) 10 mg/dL (9-23)
[2017-10-22 15:12] VITALS: BP 123/61
[2017-10-23 00:02] VITALS: BP 136/93
[2017-10-23 06:42] LABS: INTER. NORMALIZED RATIO 1.5; PROTHROMBIN TIME 16.7 SEC (10.2-12.9)
[2017-10-23 06:54] VITALS: BP 103/58
[2017-10-23 09:16] LABS: BASOPHIL COUNT 0.1 K/uL (0-0.1); EOSINOPHIL (%) 2.6 % (0-5); EOSINOPHIL COUNT 0.2 K/uL (0-0.3); HEMATOCRIT 31.3 % (36.0-46.0); IMMATURE GRANULOCYTE (%) 3.4 % (0.0-0.7); IMMATURE GRANULOCYTE COUNT 0.2 K/uL; INSTRUMENT ABS NEUTROPHIL CT 3.8 K/uL; LYMPHOCYTE COUNT 1.2 K/uL (1.0-2.8); MCH 25.6 PG (29.0-34.0); MCHC 30.7 G/DL (30.0-36.0); MCV 83.5 FL (83-99); MEAN PLAT.VOLUME 10.2 uM^3 (9.5-12.4); MONOCYTE (%) 13.9 % (3-12); MONOCYTE COUNT 0.9 K/uL (0-0.8); NEUTROPHIL (%) 60.3 % (45-76); NEUTROPHIL COUNT 3.8 K/uL (1.8-6.4); PLATELET COUNT 184 K/uL (156-360); RBC DIS.WIDTH-CV 19.5 % (11.8-14.6); RBC DIS.WIDTH-SD 58.7 % (39-53); RED BLOOD COUNT 3.75 M/uL (3.80-5.20); WHITE BLOOD COUNT 6.3 K/uL (4.1-10.2)
[2017-10-23 09:32] LABS: ANION GAP 8 MEQ/L (2-14); CHLORIDE 104 MEQ/L (99-109); POTASSIUM 3.9 MEQ/L (3.7-5.4); SAMPLE HEMOLYSIS CHECK 0; SAMPLE ICTERIC CHECK 0; SAMPLE LIPEMIA CHECK 0; SODIUM 145 MEQ/L (136-147)
[2017-10-23 09:38] LABS: GFR ESTIMATE (CALCULATED) > 59 mL/min/; GLUCOSE 95 mg/dL (70-99); UREA NITROGEN (BUN) 12 mg/dL (9-23)
[2017-10-23 15:13] VITALS: BP 116/63
[2017-10-23 23:38] VITALS: BP 142/86
[2017-10-24 07:07] LABS: BASOPHIL COUNT 0.1 K/uL (0-0.1); EOSINOPHIL (%) 2.2 % (0-5); EOSINOPHIL COUNT 0.1 K/uL (0-0.3); HEMATOCRIT 32.7 % (36.0-46.0); IMMATURE GRANULOCYTE (%) 2.4 % (0.0-0.7); IMMATURE GRANULOCYTE COUNT 0.2 K/uL; INSTRUMENT ABS NEUTROPHIL CT 3.9 K/uL; LYMPHOCYTE COUNT 1.1 K/uL (1.0-2.8); MCV 83.4 FL (83-99); MEAN PLAT.VOLUME 9.8 uM^3 (9.5-12.4); MONOCYTE (%) 15.6 % (3-12); NEUTROPHIL (%) 61.2 % (45-76); NEUTROPHIL COUNT 3.9 K/uL (1.8-6.4); PLATELET COUNT 209 K/uL (156-360); RBC DIS.WIDTH-CV 19.8 % (11.8-14.6); RED BLOOD COUNT 3.92 M/uL (3.80-5.20); WHITE BLOOD COUNT 6.3 K/uL (4.1-10.2)
[2017-10-24 07:25] LABS: INTER. NORMALIZED RATIO 2.1
[2017-10-24 07:31] LABS: ALKALINE PHOSPHATASE 61 IU/L (3-129); ANION GAP 6 MEQ/L (2-14); CHLORIDE 105 MEQ/L (99-109); GFR ESTIMATE (CALCULATED) > 59 mL/min/; GLUCOSE 91 mg/dL (70-99); POTASSIUM 3.9 MEQ/L (3.7-5.4); SAMPLE HEMOLYSIS CHECK 0; SAMPLE ICTERIC CHECK 0; SAMPLE LIPEMIA CHECK 0; SODIUM 146 MEQ/L (136-147); TOTAL BILIRUBIN 0.2 MG/DL (0.0-1.0); UREA NITROGEN (BUN) 14 mg/dL (9-23)
[2017-10-24 07:40] LABS: PROTHROMBIN TIME 24.6 SEC (10.2-12.9)
[2017-10-24 07:46] VITALS: BP 146/95
[2017-10-24 16:20] VITALS: BP 142/77
[2017-10-25 00:03] VITALS: BP 112/59
[2017-10-25 06:51] LABS: INTER. NORMALIZED RATIO 2.5; PROTHROMBIN TIME 28.2 SEC (10.2-12.9)
[2017-10-25 07:51] VITALS: BP 144/95
[2017-10-25 08:41] LABS: HEMATOCRIT 36.6 % (36.0-46.0); MCV 84.9 FL (83-99)
[2017-10-25 16:00] VITALS: BP 142/92
[2017-10-25 16:11] LABS: C DIFF TOXIN NEGATIVE (NEGATIVE)
[2017-10-25 16:14] LABS: PROBE CHECK PASS; SPECIMEN PROCESSING CONTROL PASS
[2017-10-26 00:33] VITALS: BP 137/83
[2017-10-26 06:35] LABS: INTER. NORMALIZED RATIO 3.5
[2017-10-26 07:53] LABS: HEMATOCRIT 34.1 % (36.0-46.0); MCH 25.1 PG (29.0-34.0); MCV 86.3 FL (83-99); MEAN PLAT.VOLUME 10.4 uM^3 (9.5-12.4); PLATELET COUNT 237 K/uL (156-360); RBC DIS.WIDTH-SD 63.3 % (39-53); RED BLOOD COUNT 3.95 M/uL (3.80-5.20); WHITE BLOOD COUNT 6.1 K/uL (4.1-10.2)
[2017-10-26 08:05] LABS: ANION GAP 4 MEQ/L (2-14); CHLORIDE 103 MEQ/L (99-109); GFR ESTIMATE (CALCULATED) > 59 mL/min/; GLUCOSE 97 mg/dL (70-99); SAMPLE HEMOLYSIS CHECK 0; SAMPLE ICTERIC CHECK 0; SAMPLE LIPEMIA CHECK 0; SODIUM 147 MEQ/L (136-147); UREA NITROGEN (BUN) 13 mg/dL (9-23)
[2017-10-26 08:19] VITALS: BP 112/59
[2017-10-26 08:20] VITALS: BP 143/70
[2017-10-26 20:34] VITALS: BP 180/84
[2017-10-27 00:15] VITALS: BP 107/65; BP 132/81
[2017-10-27 04:06] VITALS: BP 113/66
[2017-10-27 06:33] LABS: BASOPHIL COUNT 0.1 K/uL (0-0.1); EOSINOPHIL (%) 1.8 % (0-5); EOSINOPHIL COUNT 0.1 K/uL (0-0.3); HEMATOCRIT 32.9 % (36.0-46.0); IMMATURE GRANULOCYTE (%) 1.3 % (0.0-0.7); IMMATURE GRANULOCYTE COUNT 0.1 K/uL; INSTRUMENT ABS NEUTROPHIL CT 4.4 K/uL; LYMPHOCYTE COUNT 1.2 K/uL (1.0-2.8); MCH 24.6 PG (29.0-34.0); MCHC 28.9 G/DL (30.0-36.0); MCV 85.2 FL (83-99); MEAN PLAT.VOLUME 10.4 uM^3 (9.5-12.4); MONOCYTE (%) 16.9 % (3-12); MONOCYTE COUNT 1.2 K/uL (0-0.8); NEUTROPHIL (%) 62.6 % (45-76); NEUTROPHIL COUNT 4.4 K/uL (1.8-6.4); PLATELET COUNT 236 K/uL (156-360); RBC DIS.WIDTH-CV 19.5 % (11.8-14.6); RBC DIS.WIDTH-SD 61.1 % (39-53); RED BLOOD COUNT 3.86 M/uL (3.80-5.20)
[2017-10-27 06:57] LABS: ANION GAP 5 MEQ/L (2-14); CHLORIDE 103 MEQ/L (99-109); GFR ESTIMATE (CALCULATED) > 59 mL/min/; GLUCOSE 101 mg/dL (70-99); POTASSIUM 4.1 MEQ/L (3.7-5.4); SAMPLE HEMOLYSIS CHECK 0; SAMPLE ICTERIC CHECK 0; SAMPLE LIPEMIA CHECK 0; SODIUM 147 MEQ/L (136-147); UREA NITROGEN (BUN) 14 mg/dL (9-23)
[2017-10-27 07:59] VITALS: BP 116/60
[2017-10-27 10:56] LABS: INTER. NORMALIZED RATIO 2.4
[2017-10-27 10:57] LABS: PROTHROMBIN TIME 27.2 SEC (10.2-12.9)
[2017-10-27] MEDS ORDERED: DEPAKOTE SPRIN125 MG PO (11:07)
[2017-10-27 11:46] VITALS: BP 120/66
== END 2017-10-27 15:29 | DRG 71 ==
LOC: EME 12:07 → EDOF 16:57 → 5SOUTH 16:57 → ENRESERV 17:33 → 5SOUTH 20:00
PROVIDERS: Emergency Medicine; Hospitalist; Internal Medicine
DX: G93.41 Metabolic encephalopathy (principal); F01.51 Vascular dementia, unspecified severity, with behavioral disturbance; J96.11 Chronic respiratory failure with hypoxia; N17.9 Acute kidney failure, unspecified; E72.20 Disorder of urea cycle metabolism, unspecified; Z68.41 Body mass index [BMI] 40.0-44.9, adult; N39.0 Urinary tract infection, site not specified; I50.42 Chronic combined systolic (congestive) and diastolic (congestive) heart failure; F33.9 Major depressive disorder, recurrent, unspecified; I69.359 Hemiplegia and hemiparesis following cerebral infarction affecting unspecified side; J96.12 Chronic respiratory failure with hypercapnia; E87.2 Acidosis; E66.2 Morbid (severe) obesity with alveolar hypoventilation; E87.0 Hyperosmolality and hypernatremia; E78.5 Hyperlipidemia, unspecified; E86.0 Dehydration; I48.0 Paroxysmal atrial fibrillation; Z66 Do not resuscitate; R79.1 Abnormal coagulation profile; E56.1 Deficiency of vitamin K; E87.6 Hypokalemia; F41.1 Generalized anxiety disorder; G40.909 Epilepsy, unspecified, not intractable, without status epilepticus; I11.0 Hypertensive heart disease with heart failure; J43.9 Emphysema, unspecified; K21.9 Gastro-esophageal reflux disease without esophagitis; R13.10 Dysphagia, unspecified; T45.515A Adverse effect of anticoagulants, initial encounter; G93.89 Other specified disorders of brain; K59.00 Constipation, unspecified; Z91.19 Patient's noncompliance with other medical treatment and regimen; Z99.81 Dependence on supplemental oxygen; Z79.01 Long term (current) use of anticoagulants; Z74.01 Bed confinement status
CPT/HCPCS: 36600; 70450; 71010; 80048; 80053; 80164; 81003; 82140; 82803; 83605; 84484; 85014; 85018; 85025; 85027; 85610; 85730; 87040; 87086; 87493; 92610 GN; 93971; 94760; 94799; 97530 GP; 99202; 99281; 99285; J0696; J1644